=== PATIENT | male | born 1965 | race Two or more races ===

== ENCOUNTER 2019-05-02 14:51 | Outpatient (RCR) | payer MEDICARE, MEDICAID | END 2019-05-27 | disposition home or self-care (01) | LOC: WCC 14:51 | DX: T86.828 Other complications of skin graft (allograft) (autograft) (principal); I12.0 Hypertensive chronic kidney disease with stage 5 chronic kidney disease or end stage renal disease; E11.22 Type 2 diabetes mellitus with diabetic chronic kidney disease; N18.6 End stage renal disease; Z89.422 Acquired absence of other left toe(s); Z79.899 Other long term (current) drug therapy; Z87.891 Personal history of nicotine dependence | CPT/HCPCS: 82962; G0277; G0463 ==

== ENCOUNTER 2019-05-02 16:04 | Outpatient (CLI) | payer MEDICARE, MEDICAID ==
--- NOTE | 2019-05-02 17:10 | Diagnostic Imaging Report ---
Indication: Cough Comparison: None 2 views of the chest obtained. Findings: There is platelike atelectasis at the left lung base. Lungs are clear otherwise. Borderline cardiomegaly demonstrated. Bones are unremarkable. IMPRESSION: Mild left basal atelectasis
== END 2019-05-02 18:04 | disposition home or self-care (01) ==
LOC: RAD 16:04
DX: R05 Cough (principal); J98.11 Atelectasis
CPT/HCPCS: 71046